=== PATIENT | female | born 1945 | race Caucasian/White ===

== ENCOUNTER 2018-03-04 14:32 | Outpatient (CLI) | payer BC ==
[2018-03-04 15:28] LABS: #Basophils 0.1 thou/uL (0.0-0.2); #Eosinphils 0.2 thou/uL (0.0-0.7); #Lymphocytes 2.1 thou/uL (1.20-3.40); #Monocytes 0.6 thou/uL (0.11-0.59); #Neutrophils 3.5 thou/uL (1.40-6.50); %Eosinophils 3.2 % (0.0-10.0); %Lymphocytes 32.6 % (21.0-51.0); %Monocytes 9.2 % (0.0-10.0); Hemoglobin 13.4 g/dL (12.0-16.0); Mean Corpuscular HGB CONC 33.1 g/dL (32.0-36.0); Mean Corpuscular Hemoglobin 30.4 pg (27.0-31.0); Mean Corpuscular Volume 91.7 fL (78.0-98.0); Platelet Count 213 thou/uL (130-400); RBC Distribution Width 11.7 % (11.5-14.5); White Blood Cell (WBC) Count 6.5 thou/uL (4.8-10.8)
[2018-03-04 15:46] LABS: Anion Gap 13 mmol/L (10-20); BUN (Urea Nitrogen) 16 mg/dL (9.8-20.1); Calc. Creatinine Clearance 0 mL/min (70-130); Calcium 9.2 mg/dL (7.8-10.44); Carbon Dioxide 26 mmol/L (23-31); Chloride 106 mmol/L (98-107); Estimated GFR-MDRD 47; Glucose 118 mg/dL (80-115); Potassium 3.9 mmol/L (3.5-5.1); Sodium 141 mmol/L (136-145)
--- NOTE | 2018-03-05 07:50 | EKG ---
Test Reason : Blood Pressure : / mmHG Vent. Rate : 060 BPM Atrial Rate : 060 BPM P-R Int : 164 ms QRS Dur : 072 ms QT Int : 422 ms P-R-T Axes : 038 055 054 degrees QTc Int : 422 ms Sinus rhythm with Premature supraventricular complexes Otherwise normal ECG No previous ECGs available Confirmed by DR. Dago MACIAS ([id number]) on 03/05/2018 7:50:06 AM Referred By: MARQUEZ Confirmed By:DR. Dago MACIAS
== END 2018-03-04 14:33 | disposition home or self-care (01) ==
LOC: LABBT 14:32
PROVIDERS: ATTEND Orthopaedic Surgery
DX: Z01.818 Encounter for other preprocedural examination (principal); S83.242A Other tear of medial meniscus, current injury, left knee, initial encounter
CPT/HCPCS: 80048; 85025; 93005; 93010

== ENCOUNTER 2018-03-12 06:28 | Day surgery (SDC) | payer BC ==
[2018-03-04 14:44] VITALS: BMI 32.9
[2018-03-12] MEDS ORDERED: PROPOFOL 0 ML ONE (06:34)
[2018-03-12] MEDS ORDERED: CEFAZOLIN 2 GM/50 ML BAG ONE (06:56)
[2018-03-12] MEDS ORDERED: PROPOFOL 20 ML ONE (07:04)
[2018-03-12] MEDS ORDERED: Fentanyl 100 MCG/2 ML VIAL ONE (07:41)
--- NOTE | 2018-03-12 08:54 | OP ---
DATE OF PROCEDURE: 03/12/2018 PREOPERATIVE DIAGNOSIS: Medial meniscus tear, left knee. POSTOPERATIVE DIAGNOSIS: Medial meniscus tear, left knee. PROCEDURE: Arthroscopic partial medial meniscectomy. SURGEON: Christoph Ruano M.D. ANESTHESIA: General. BLOOD LOSS: Minimal. SPECIMEN: None. DRAINS: None. COMPLICATIONS: None. TOURNIQUET TIME: Zero. PROCEDURE IN DETAIL: The patient was taken to the operating where general anesthesia was induced. H er left leg was prepped and draped in the usual sterile fashion. Scope was placed in the lateral por guido and probe was placed in the medial portal. FINDINGS AT SURGERY: No significant osteoarthritis, posterior horn medial meniscus tear, intact ACL. I debrided the medial meniscus using basket forceps and smoothed using a 4-0 full radius resector. I probed the meniscus and confirmed it is stable. Knee was then irrigated. Sterile dressings appli ed.
[2018-03-12] MEDS ORDERED: Lidocaine 2% w/Epinephrine 1:200K 20 ML VIAL ONE (13:16)
[2018-03-12] MEDS ORDERED: Bupivacaine HCl 0.5%/Epinephrine 1:200,000/PF 30 ml Vial ONE (13:16)
[2018-03-12] MEDS ORDERED: PROPOFOL 200 MG/20 ML VIAL ONE (15:08)
[2018-03-12] MEDS ORDERED: Dexamethasone 20 MG/5 ML VIAL ONE (15:08)
[2018-03-12] MEDS ORDERED: Ondansetron PF 4 MG/2 ML Vial ONE (15:08)
== END 2018-03-12 10:50 | disposition home or self-care (01) ==
LOC: SDC 06:28
PROVIDERS: ATTEND Orthopaedic Surgery
PROC: 0SBD4ZZ Excision of Left Knee Joint, Percutaneous Endoscopic Approach (ICD-10-PCS; principal; 2018-03-12)
DX: S83.242A Other tear of medial meniscus, current injury, left knee, initial encounter (principal); I10 Essential (primary) hypertension; Z79.899 Other long term (current) drug therapy
CPT/HCPCS: G8978-GP-CJ; G8979-GP-CJ; G8980-GP-CJ; J0670; J1100; J2405; J2704; J3010

== ENCOUNTER 2018-09-11 07:44 | Outpatient (CLI) | payer BC ==
--- NOTE | 2018-09-11 11:18 | MRI ---
MRI OF THE LEFT KNEE: DATE: 09/01/2018. Provided CLINICAL HISTORY: Left knee pain. FINDINGS: The anterior cruciate ligament, posterior cruciate ligament, medial collateral ligament, and lateral collateral ligamentous complex demonstrate an intact MR appearance, as well as the extensor mechanism . There is a complex tear involving the body-anterior horn junction of the medial meniscus with a proba ble displaced flap component within the medial meniscotibial recess. The lateral meniscus demonstrat es no definite evidence for tear. No focal articular cartilage defect is apparent. Focus of susceptibility artifact at the anterior as pect of the central weightbearing portions of the medial tibial plateau, of uncertain etiology and si gnificance. Radiographic correlation is necessary. There is a small knee joint effusion. No focal concerning regional marrow or muscular signal abnorma lity is evident. IMPRESSION: 1. Medial meniscal tear as described. 2. Small knee joint effusion. 3. Small focus of susceptibility artifact involving the anterior weightbearing aspect of the medial femoral condyle of uncertain etiology and significance. Correlation with radiographs is recommended. POS: [facility]
== END 2018-09-11 07:45 | disposition home or self-care (01) ==
LOC: SCSMRI 07:44
PROVIDERS: ATTEND Orthopaedic Surgery
DX: S83.242D Other tear of medial meniscus, current injury, left knee, subsequent encounter (principal); M17.12 Unilateral primary osteoarthritis, left knee